=== PATIENT | male | born 1980 | race Caucasian/White ===

== ENCOUNTER 2019-06-09 12:46 | Emergency (ER) | payer BC ==
--- NOTE | 2019-06-09 12:54 | EDM.PDOC ---
ED HPI GENERAL MEDICAL PROBLEM - General Chief Complaint: General Stated Complaint: PAIN IN LOWER BACK Time Seen by Provider: 06/09/19 12:54 Source of Information: Reports: Patient - History of Present Illness INITIAL COMMENTS - FREE TEXT/NARRATIVE: HISTORY AND PHYSICAL: History of present illness: []pt w h/o kidney stone presents w right flank pain 11/03 raiating to testicle w n/v no c/s/f/d/cp/sob/fields/d/palp denies injury or trauma Review of systems: As per history of present illness and below otherwise all systems reviewed and negative. Past medical history: As per history of present illness and as reviewed below otherwise noncontributory. Surgical history: As per history of present illness and as reviewed below otherwise noncontributory. Social history: No reported history of drug or alcohol abuse. Family history: As per history of present illness and as reviewed below otherwise noncontributory. Physical exam: HEENT: Atraumatic, normocephalic, pupils reactive, negative for conjunctival pallor or scleral icterus, mucous membranes moist, throat clear, neck supple, nontender, trachea midline. Lungs: Clear to auscultation, breath sounds equal bilaterally, chest nontender. Heart: S1S2, regular, negative for clicks, rubs, or JVD. Abdomen: Soft, nondistended, nontender. Negative for masses or hepatosplenomegaly. Negative for costovertebral tenderness. Pelvis: Stable nontender. Genitourinary: Deferred. Rectal: Deferred. Extremities: Atraumatic, negative for cords or calf pain. Neurovascular unremarkable. Neuro: Awake, alert, oriented. Cranial nerves II through XII unremarkable. Cerebellum unremarkable. Motor and sensory unremarkable throughout. Exam nonfocal. Diagnostics: [cbc, cmp, ua ct abd/pelv wo ] Therapeutics: []ns zofran flomax solumedrol keflex flomax norco filter Impression: 3mm uretal stone Definitive disposition and diagnosis as appropriate pending reevaluation and review of above. Right Lower Back Pain Score (Numeric/FACES): 6 - Related Data Allergies Allergy/AdvReac Type Severity Reaction Status Date / Time No Known Allergies Allergy Verified 06/09/19 13:01 Home Meds: Home Meds traMADol [Ultram] 50 mg PO ASDIRECTED 12/14/19 [History] ED ROS GENERAL - Review of Systems Review Of Systems: See Below ED EXAM, GENERAL - Physical Exam Exam: See Below Course - Vital Signs Last Recorded V/S: Last Vital Signs Temp 97 F 06/09/19 13:02 Pulse 60 06/09/19 14:12 Resp 18 06/09/19 14:12 BP 145/82 H 06/09/19 14:12 Pulse Ox 98 06/09/19 14:12 - Orders/Labs/Meds Orders: Active Orders 24 hr Category Date Time Status CULTURE URINE [RM] Stat Lab 06/09/19 13:30 Received Labs: Laboratory Tests 06/09/19 06/09/19 06/09/19 Range/Units 13:05 13:05 13:30 WBC 6.30 (4.0-11.0) K/uL RBC 4.86 (4.50-5.90) M/uL Hgb 13.5 (13.0-17.0) g/dL Hct 40.5 (38.0-50.0) % MCV 83.3 (80.0-98.0) fL MCH 27.8 (27.0-32.0) pg MCHC 33.3 (31.0-37.0) g/dL RDW Std Deviation 47.0 (28.0-62.0) fl RDW Coeff of María 16 H (11.0-15.0) % Plt Count 218 (150-400) K/uL MPV 11.30 (7.40-12.00) fL Neut % (Auto) 68.2 (48.0-80.0) % Lymph % (Auto) 21.4 (16.0-40.0) % [place] % (Auto) 8.1 (0.0-15.0) % Eos % (Auto) 1.7 (0.0-7.0) % Baso % (Auto) 0.6 (0.0-1.5) % Neut # (Auto) 4.3 (1.4-5.7) K/uL Lymph # (Auto) 1.4 (0.6-2.4) K/uL [place] # (Auto) 0.5 (0.0-0.8) K/uL Eos # (Auto) 0.1 (0.0-0.7) K/uL Baso # (Auto) 0.0 (0.0-0.1) K/uL Nucleated RBC % 0.0 /100WBC Nucleated RBCs # 0 K/uL Sodium 142 (136-148) mmol/L Potassium 3.9 (3.5-5.1) mmol/L Chloride 105 (98-107) mmol/L Carbon Dioxide 24.5 (21.0-32.0) mmol/L BUN 11 (7.0-18.0) mg/dL Creatinine 0.7 L (0.8-1.3) mg/dL Est Cr Clr Drug Dosing 149.19 mL/min Estimated GFR (MDRD) > 60.0 ml/min Glucose 81 (74-106) mg/dL Calcium 8.9 (8.5-10.1) mg/dL Total Bilirubin 1.0 (0.2-1.0) mg/dL AST 29 (15-37) IU/L ALT 43 (14-63) IU/L Alkaline Phosphatase 81 (46-116) U/L Total Protein 7.7 (6.4-8.2) g/dL Albumin 4.2 (3.4-5.0) g/dL Globulin 3.5 (2.6-4.0) g/dL Albumin/Globulin Ratio 1.2 (0.9-1.6) Lipase 81 (73-393) U/L Urine Color YELLOW Urine Appearance CLEAR Urine pH 5.5 (5.0-8.0) Ur Specific [place] >= 1.030 (1.001-1.035) Urine Protein NEGATIVE (NEGATIVE) mg/dL Urine Glucose (UA) NEGATIVE (NEGATIVE) mg/dL Urine Ketones 40 H (NEGATIVE) mg/dL Urine Occult Blood MODERATE H (NEGATIVE) Urine Nitrite POSITIVE H (NEGATIVE) Urine Bilirubin MODERATE H (NEGATIVE) Urine Ictotest POSITIVE Urine Urobilinogen 1.0 (<2.0) EU/dL Ur Leukocyte Esterase NEGATIVE (NEGATIVE) Urine RBC 1-3 (0-2/HPF) Urine WBC RARE (0-5/HPF) Ur Epithelial Cells FEW (NONE-FEW) Urine Bacteria FEW (NEGATIVE) Urine Mucus LIGHT (NONE-MOD) Meds: Medications Discontinued Medications Generic Name Dose Route Start Last Admin Trade Name Freq PRN Reason Stop Dose Admin Sodium Chloride 1,000 mls @ 999 mls/hr 06/09/19 13:02 06/09/19 13:31 Normal Saline IV 06/09/19 14:02 999 mls/hr STAT ONE Administration Methylprednisolone Sodium Succinate 125 mg 06/09/19 14:18 Solu-Medrol IVPUSH 06/09/19 14:19 ONETIME ONE Morphine Sulfate 2 mg 06/09/19 13:51 06/09/19 14:11 Morphine IVPUSH 06/09/19 13:52 2 mg ONETIME ONE Administration Ondansetron HCl 8 mg 06/09/19 13:02 06/09/19 13:31 Zofran IVPUSH 06/09/19 13:03 8 mg ONETIME ONE Administration Tamsulosin HCl 0.4 mg 06/09/19 14:18 Flomax PO 06/09/19 14:19 ONETIME ONE Departure - Departure Time of Disposition: 14:27 Disposition: Home, Self-Care 01 Condition: Good Clinical Impression: Ureteral stone - Discharge Information Referrals: PCP,Not In Area [Primary Care Provider] - Forms: ED Department Discharge Additional Instructions: medication as presibed return if persist or worsen, or fever chills sweats filter and collection equipment provided return stone to urology or primary care [facility] - Urology [address] [place] [address] [facility] - Primary Care [address] [place] [address] The following information is given to patients seen in the emergency department who are being discharged to home. This information is to outline your options for follow-up care. We provide all patients seen in our emergency department with a follow-up referral. The need for follow-up, as well as the timing and circumstances, are variable depending upon the specifics of your emergency department visit. If you don't have a primary care physician on staff, we will provide you with a referral. We always advise you to contact your personal physician following an emergency department visit to inform them of the circumstance of the visit and for follow-up with them and/or the need for any referrals to a consulting specialist. The emergency department will also refer you to a specialist when appropriate. This referral assures that you have the opportunity for follow-up care with a specialist. All of these measure are taken in an effort to provide you with optimal care, which includes your follow-up. Under all circumstances we always encourage you to contact your private physician who remains a resource for coordinating your care. When calling for follow-up care, please make the office aware that this follow-up is from your recent emergency room visit. If for any reason you are refused follow-up, please contact the [facility] emergency department at and asked to speak to the emergency department charge nurse. Sepsis Event Note - Focused Exam Vital Signs: Vital Signs Temp Pulse Resp BP Pulse Ox 06/09/19 14:12 60 18 145/82 H 98 06/09/19 13:02 97 F 72 16 144/80 H 99 Date Exam was Performed: 06/09/19 Time Exam was Performed: 14:27 - My Orders Last 24 Hours: My Active Orders 06/09/19 13:30 CULTURE URINE [RM] Stat - Assessment/Plan Last 24 Hours: My Active Orders 06/09/19 13:30 CULTURE URINE [RM] Stat
[2019-06-09] MEDS ORDERED: Sodium Chloride 0.9% 1,000 ML IV ONE (13:02)
[2019-06-09] MEDS ORDERED: Ondansetron 4 MG/2 ML SDV IVPUSH ONE (13:02)
[2019-06-09] MEDS ORDERED: Morphine 2 MG/ML Syringe IVPUSH ONE (13:51)
[2019-06-09 13:54] LABS: BLOOD UREA NITROGEN,BUN 11 mg/dL (7.0-18.0); CARBON DIOXIDE,CO2 24.5 mmol/L (21.0-32.0); CHLORIDE,CL 105 mmol/L (98-107); GLUCOSE RANDOM 81 mg/dL (74-106); LIPASE 81 U/L (73-393); POTASSIUM,K 3.9 mmol/L (3.5-5.1); SODIUM,NA 142 mmol/L (136-148)
--- NOTE | 2019-06-09 14:04 | CT ---
HISTORY: Low back pain history of stones. TECHNIQUE: Noncontrast CT abdomen and pelvis. Coronal sagittal reformat images obtained. Findings: Lung bases are clear. Heart size normal. No pericardial effusion no pleural effusion. Spleen pancreas adrenal glands are unremarkable. Liver is unremarkable cholecystectomy. Normal caliber abdominal aorta. 3 mm right UVJ stone causing mild hydronephrosis and hydroureter. No additional renal calculi. Left kidney is unremarkable. 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 Normal appendix. Urinary bladder decompressed. Prostate gland is unremarkable. The bowel is unremarkable no suspicious bony lesions. Impression: 1. 3 millimeter right UVJ stone causing mild hydronephrosis and hydroureter. Please note that all CT scans at this facility use dose modulation, iterative reconstruction, and/or weight-based dosing when appropriate to reduce radiation dose to as low as reasonably achievable. Dictated by La Johnson MD @ Jun 09 2019 1:57PM Signed by Dr. La Johnson @ Jun 09 2019 2:01PM
[2019-06-09] MEDS ORDERED: Tamsulosin 0.4 MG Cap.ER PO ONE (14:18)
[2019-06-09] MEDS ORDERED: methylPREDNISolone Sodium Succinate 125 MG/2 ML SDV IVPUSH ONE (14:18)
[2019-06-09] MEDS ORDERED: Cephalexin 500 MG Cap PO ONE (14:30)
== END 2019-06-09 15:13 | disposition home or self-care (01) ==
LOC: MW.ED 12:46
DX: N13.2 Hydronephrosis with renal and ureteral calculous obstruction (principal)
CPT/HCPCS: 74176; 80053; 81001; 83690; 85025; 87086; 96361; 96374; 96375; 99284; A9270; J2270; J2405; J2930; J7030